=== PATIENT | female | born 1945 | race Two or more races ===

== ENCOUNTER → 2017-10-24 | Emergency (ER) | payer OTHER ==
[~2017-10-24] VITALS: Ht 160 cm; Wt 95.3 kg
[~2017-10-24] MED LIST: CARVEDILOL25 MG PO; COZAAR50 MG PO; DICLOFENAC SODI50 MG PO; HUMALOG100 U/M1 SQ; LANTUS100 U/ML; LEVAQUIN750 MG PO; LYRICA50 MG PO; NEURONTIN300 MG; PLAVIX75 MG PO; PROTONIX20 MG PO; TRULICITY1.5 MG/0.5; VYTORIN 10/40 M1 TAB; ZANTAC150 M3 PO
== END | disposition home or self-care (01) ==
LOC: ER 07:56
DX: J06.9 Acute upper respiratory infection, unspecified (principal); B34.9 Viral infection, unspecified

== ENCOUNTER 2020-09-10 17:17 | Emergency (ER) | payer OTHER ==
[~2020-09-10] VITALS: Ht 160 cm; Wt 93.4 kg
== END 2020-09-10 21:25 | disposition designated cancer center or children's hospital (05) ==
LOC: ER 17:17 → CPU-OBS 17:37 → ER 21:25
DX: I20.0 Unstable angina (principal); R07.89 Other chest pain

== ENCOUNTER 2025-06-21 08:00 | Outpatient (CLI) | payer OTHER ==
[~2025-06-21] VITALS: Ht 160 cm; Wt 84.8 kg
[2025-06-21 13:36] VITALS: BP 118/68
[2025-06-21] MEDS ORDERED: ISOSORBIDE MONO60 MG (14:06)
[2025-06-21] MEDS ORDERED: TOPROL XL50 M1 (14:06)
[2025-06-21] MEDS ORDERED: ATORVASTATIN (14:06)
[2025-06-21] MEDS ORDERED: [UNRECOGNIZED DRUG - OTHER] (14:07)
[2025-06-21] MEDS ORDERED: FUROSEMIDE (14:08)
== END 2025-06-21 08:15 | disposition home or self-care (01) ==
LOC: LAB 08:00 → EDSTATUS 06-26 12:00 → SURH 06-26 12:00
PROVIDERS: ATTEND Orthopaedic Surgery Sports Medicine
DX: M16.11 Unilateral primary osteoarthritis, right hip (principal)

== ENCOUNTER 2025-08-21 07:00 | Day surgery (SDC) | payer OTHER ==
[2025-08-16 10:25] VITALS: BP 142/61
[~2025-08-21] VITALS: Ht 160 cm; Wt 86.2 kg
[~2025-08-21 07:00] MED LIST changes: +ATORVASTATIN; +CARAFATE1 GM/10 ML PO; +FUROSEMIDE; +ISOSORBIDE MONO60 MG; +NITROGLYCERIN0.4 MG SL; +TOPROL XL50 M1; +VITAMIN D31 ML; +[UNRECOGNIZED DRUG - OTHER]
[2025-08-21] MEDS ORDERED: CEFAZOLIN SODIUM 1,000 MG VIAL ONE (08:27)
== END 2025-08-21 11:05 | disposition home or self-care (01) ==
LOC: CIR.AMB 07:00 → O/R 07:00 → SURH 07:00 → EDSTATUS 10:00 → SURH 10:00 → CIR.AMB 11:05 → SURH 15:00
PROVIDERS: ATTEND Orthopaedic Surgery Sports Medicine
DX: M16.11 Unilateral primary osteoarthritis, right hip (principal); Z53.09 Procedure and treatment not carried out because of other contraindication; R73.09 Other abnormal glucose

== ENCOUNTER 2025-08-27 09:29 | Emergency (ER) | payer OTHER ==
[~2025-08-27] VITALS: Ht 162.6 cm; Wt 68.0 kg
[2025-08-27 09:55] VITALS: BP 165/82; O2SAT 97
[2025-08-27] MEDS ORDERED: FAMOtidine 10 MG/ML (4ML VIAL) IV PUSH ONE (10:45)
[2025-08-27] MEDS ORDERED: DEXTROSE 5 % AND 0.9 % NACL 1,000 ML IV SCH (10:45)
[2025-08-27 12:34] LABS: BASO % 0.3 % (0.1-1.2); EOS # 0.03 (0.04-0.54); EOS % 0.5 % (0.7-7.0); LYMPH # 1.87 (1.18-3.74); LYMPH % 30.9 % (19.3-53.1); MEAN PLATELET VOLUME 11.20 fl (9.4-12.4); MONO # 0.39 (0.24-0.82); MONO % 6.4 % (4.7-12.5); NEUT # 3.74 (1.56-6.13); NEUT % 61.7 % (34.0-71.1); RED CELL DISTRIBUTION WIDTH 13.8 % (11.6-14.4)
[2025-08-27 12:55] LABS: ALT/SGPT 18.0 U/L (12-78); AST/SGOT 14.0 U/L (15-37); BILIRUBIN TOTAL 0.59 mg/dL (0.3-1.2); BUN CREA RATIO 12.0 (7.0-25.0); CREATININE SERUM 0.73 mg/dL (0.55-1.02); GFR 76.9; GLOBULINA 4.1 G/DL (2.4-3.5); GLUCOSE FASTING 132.0 mg/dL (65-100); OSMOLALITY SERUM 291.0 MOSM/KG (275-295)
[2025-08-27 14:10] LABS: URINE APPEARANCE Clear; URINE BACTERIA 608.4 uL (0.0-1933); URINE BILIRRUBIN Negative (NEGATIVE); URINE BLOOD Negative; URINE COLOR Yellow; URINE EPITHELIAL CELLS 24.4 uL (0.0-38.8); URINE KETONE Negative (NEGATIVE); URINE LEUKOCYTE Negative; URINE NITRATE Negative; URINE PROTEIN Negative (NEGATIVE); URINE RBC 8.0 uL (0.0-20.8); URINE UROBILINOGEN 0.2 E.U./dl; URINE WBC 9.3 uL (0.0-23.2)
[2025-08-27 14:18] LABS: URINE CAST 0.00 uL (0.0-1.40); URINE GLUCOSE >=1000 MG/DL (NEGATIVE)
== END 2025-08-27 20:01 | disposition home or self-care (01) ==
LOC: ER 09:29
PROVIDERS: General Practice
DX: E16.2 Hypoglycemia, unspecified (principal); R53.1 Weakness; R42 Dizziness and giddiness; E11.9 Type 2 diabetes mellitus without complications; Z79.4 Long term (current) use of insulin; Z88.0 Allergy status to penicillin
CPT/HCPCS: 36415; 70450; 96365; 96366; 99284; J3490; J7030